=== PATIENT | female | born 1975 | race Caucasian/White ===

== ENCOUNTER 2016-10-18 13:57 | Inpatient (IN) | payer MEDICAID ==
[~2016-10-18] VITALS: Ht 160 cm; Wt 63.5 kg
[~2016-10-18 13:57] MED LIST: BUPR1FIL3 SL; CITA40TA22 PO; CLON0.5T PO; TRAZ-147 PO
[2016-10-18] MEDS ORDERED: CHARCOAL/SORBITOL SOLUTION 50 GM/240 ML BOTTLE PO ONE (14:15)
[2016-10-18] MEDS ORDERED: ONDANSETRON 4 MG/2 ML VIAL IV ONE (14:15)
[2016-10-18] MEDS ORDERED: IV NORMAL SALINE 1000 ML BAG IV ONE ×2 (14:15→16:15)
[2016-10-18] MEDS ORDERED: LEVO125C2 PO (14:29)
[2016-10-18] MEDS ORDERED: MORP15TA PO (14:29)
[2016-10-18] MEDS ORDERED: ONDANSETRON 4 MG/2 ML VIAL ONE (14:32)
[2016-10-18] MEDS ORDERED: CHARCOAL/SORBITOL SOLUTION 50 GM/240 ML BOTTLE ONE (14:33)
--- NOTE | 2016-10-18 14:34 | NUR ---
CHARCOAL ADMINISTERED, ZOFRAN IV ADMIN, 1L 0.9 NS BOLUS INFUSING. MONIOTOR SHOWS NSR, PO2=95% ON ROOMAIR.
[2016-10-18 14:47] LABS: BASOPHILS # (AUTO) 0.1 K/uL (0.0-8.0); BASOPHILS % (AUTO) 0.8 % (0.0-2.0); EOSINOPHILS # (AUTO) 0.1 K/uL (0.0-0.7); EOSINOPHILS % (AUTO) 1.8 % (0.0-7.0); HEMATOCRIT 37.4 % (37-47); HEMOGLOBIN 12.6 G/DL (12.0-16.0); LYMPHOCYTES # (AUTO) 1.3 K/UL (0.8-4.8); LYMPHOCYTES % (AUTO) 18.3 % (20.5-51.5); MEAN CORPUSCULAR HEMOGLOBIN 30.3 UUG (27.0-31.0); MEAN CORPUSCULAR HGB CONC 34 g/dL (32.0-37.0); MEAN CORPUSCULAR VOLUME 90.2 FL (81.0-99.0); MONOCYTES # (AUTO) 0.4 K/UL (0.1-1.30); MONOCYTES % (AUTO) 6.1 % (0.0-11.0); NEUTROPHILS # (AUTO) 5.3 K/UL (1.8-8.9); PLATELET COUNT (AUTO) 182 K/UL (150-450); RED BLOOD CELL COUNT(AUTO) 4.15 MIL/UL (4.2-5.4); WHITE BLOOD COUNT (AUTO) 7.2 K/UL (4.0-11.2)
[2016-10-18 14:52] LABS: CARBON DIOXIDE 26 mmol/L (21-32); CHLORIDE 109 mmol/L (98-107); CREATININE 0.8 mg/dL (0.6-1.3); GLUCOSE 93 mg/dL (74-106); POTASSIUM 3.8 mmol/L (3.5-5.1); UREA NITROGEN, BLOOD 17 mg/dL (7-18)
[2016-10-18 14:56] LABS: ALANINE AMINOTRANSFERASE 10 U/L (14-59); ALKALINE PHOSPHATASE 52 U/L (50-136); ASPARTATE AMINOTRANSFERASE 13 U/L (15-37); BILIRUBIN,DIRECT 0.1 mg/dL (0.0-0.2); BILIRUBIN,TOTAL 0.2 mg/dL (0.2-1.0); TOTAL PROTEIN, SERUM 6.8 g/dL (6.4-8.2)
[2016-10-18 14:59] LABS: ACETAMINOPHEN < 2.0 ug/mL (10-30)
[2016-10-18] MEDS ORDERED: ZIPRASIDONE MESYLATE 20 MG VIAL IM ONE ×4 (15:00→16:37)
[2016-10-18 15:13] LABS: ETHANOL < 3 MG/DL (0-0)
--- NOTE | 2016-10-18 15:57 | NUR ---
PT ASKED FORT URINE AND STATED"NOT YET!" MADE AWARE
--- NOTE | 2016-10-18 17:19 | NUR ---
PT SLEEPING, MONITOR SHOWS NSR, PO2=96% ON ROOMAIR. PT RECEIVING 2ND L OF 0.9NS.
--- NOTE | 2016-10-18 18:48 | NUR ---
URINE SENT TO LAB.
[2016-10-18 18:58] LABS: *BILIRUBIN,URIN NEGATIVE (NEGATIVE); *BLOOD, URINE 3+ (NEGATIVE); *CLARITY,URINE SLIGHTLY CLOUDY (CLEAR); *COLOR,URINE YELLOW (YELLOW); *KETONES,URINE NEGATIVE (NEGATIVE); *PROTEIN,URINE TRACE (NEGATIVE); *UROBILINOGEN,URINE 0.2 E.U./dl (NORMAL); LEUKOCYTE ESTERASE ,URINE NEGATIVE (NEGATIVE); NITRITE, URINE NEGATIVE (NEGATIVE); UGLUCOSE NEGATIVE (NEGATIVE)
[2016-10-18 19:05] LABS: *AMPHETAMINE, URINE NEGATIVE (NEGATIVE); *BARBITURATE, URINE NEGATIVE (NEGATIVE); *CANNABINOID, URINE NEGATIVE (NEGATIVE); *COCCAINE, URINE NEGATIVE (NEGATIVE); *OPIATE, URINE NEGATIVE (NEGATIVE); *PHENCYCLIDINE SCREEN,URINE NEGATIVE (NEGATIVE); BACTERIA,URINE FEW /HPF (NONE SEEN); SQUAMOUS EPITHELIAL CELL,UR FEW /HPF (NONE SEEN); WBC,URINE 0-3 /HPF (0-3)
--- NOTE | 2016-10-18 19:06 | NUR ---
SBAR REPORT TO ZAFAR MAK
--- NOTE | 2016-10-18 19:36 | NUR ---
DR KILGORE INTO RE EVAL PATIENT. PATIENT UNABLE TO ANSWER DATE AND YEAR. PATIENT SLEEPY
--- NOTE | 2016-10-18 19:52 | NUR ---
Call placed to Tita GARRETT from answering services informed staff that all admissions are to be referred to [facility].
--- NOTE | 2016-10-18 20:19 | NUR ---
[facility] Officer Bhaskar called to inform staff that the patient's driver guard's license can be obtained from the [facility] motel front desk clerk.
--- NOTE | 2016-10-18 20:45 | NUR ---
PT RECEIVED FROM ER VIA [facility]. PT AWAKE, A/OX2. ABLE TO MAKE NEEDS KNOWN. ORIENTED TO ROOM. VS STABLE. NO SIGNS OF ACUTE DISTRESS. NO COMPLAINTS OF PAIN AT THIS TIME. REFUSED TO WEAR TELE MONITOR. SAFETY MEASURES IMPLEMENTED. 1:1 SITTER FOR SAFETY AT BEDSIDE. CALL LIGHT WITHIN REACH. WILL CONT TO MONITOR.
--- NOTE | 2016-10-18 20:45 | NUR ---
TRANSFERED TO [address] [place] [address] VIA [facility]
[2016-10-18 21:15] VITALS: BP 94/64
[2016-10-18] MEDS ORDERED: ACETAMINOPHEN 325 MG TABLET PO PRN (23:30)
[2016-10-19] VITALS: BP 100/64
[2016-10-19] MEDS: IV NS 1000 ML 1,000 ML IV PRN ×2 (00:30→12:31)
[2016-10-19] MEDS: ONDANSETRON 4 MG/2 ML VIAL IV PRN ×2 (04:57→12:30)
[2016-10-19 05:00] VITALS: BP 99/72
[2016-10-19] MEDS ORDERED: MORPHINE SULFATE 4 MG/1 ML DISP.SYRIN ONE (05:03)
[2016-10-19] MEDS ORDERED: ONDANSETRON 4 MG/2 ML VIAL ONE (05:04)
[2016-10-19 06:44] LABS: BASOPHILS # (AUTO) 0.1 K/uL (0.0-8.0); BASOPHILS % (AUTO) 1.3 % (0.0-2.0); EOSINOPHILS # (AUTO) 0.2 K/uL (0.0-0.7); EOSINOPHILS % (AUTO) 2.1 % (0.0-7.0); HEMATOCRIT 37.3 % (37-47); HEMOGLOBIN 12.4 G/DL (12.0-16.0); LYMPHOCYTES # (AUTO) 1.3 K/UL (0.8-4.8); LYMPHOCYTES % (AUTO) 15.4 % (20.5-51.5); MEAN CORPUSCULAR HEMOGLOBIN 30.4 UUG (27.0-31.0); MEAN CORPUSCULAR HGB CONC 33 g/dL (32.0-37.0); MEAN CORPUSCULAR VOLUME 91.5 FL (81.0-99.0); MONOCYTES # (AUTO) 0.2 K/UL (0.1-1.30); MONOCYTES % (AUTO) 2.7 % (0.0-11.0); NEUTROPHILS # (AUTO) 6.4 K/UL (1.8-8.9); NEUTROPHILS % (AUTO) 78.5 % (38.5-71.5); PLATELET COUNT (AUTO) 196 K/UL (150-450); RED BLOOD CELL COUNT(AUTO) 4.08 MIL/UL (4.2-5.4); WHITE BLOOD COUNT (AUTO) 8.2 K/UL (4.0-11.2)
--- NOTE | 2016-10-19 07:38 | NUR ---
END OF SHIFT NOTES. PT SLEPT WELL THROUGHOUT SHIFT. 1:1 SITTER AT BEDSIDE FOR SAFETY. NEEDS ATTENDED. V/S STABLE. NO SIGNS OF ACUTE DISTRESS. PT COMPLAINTS OF PAIN. PAIN MEDICATION ADMINISTERED ORDERED. PT VERBALIZED RELIEF OF PAIN. IVF INFUSING. SAFETY MAINTAINED. CALL LIGHT WITHIN REACH.
[2016-10-19] MEDS: PANTOPRAZOLE SODIUM 40 MG TABLET.DR PO SCH (08:29)
[2016-10-19] MEDS ORDERED: LEVOTHYROXINE SODIUM 125 MCG PO SCH (09:00)
[2016-10-19 09:27] VITALS: BP 108/74
[2016-10-19] MEDS: MORPHINE SULFATE 2 MG/1 ML DISP.SYRIN IV PRN ×3 (09:29→18:06)
[2016-10-19] MEDS: NICOTINE 21 MG/24HR PATCH TD SCH (10:15)
[2016-10-19 10:36] LABS: BILIRUBIN,TOTAL 0.2 mg/dL (0.2-1.0); CREATININE 0.6 mg/dL (0.6-1.3); MAGNESIUM 2.1 mg/dL (1.8-2.4); PHOSPHOROUS 2.7 mg/dL (2.5-4.9); POTASSIUM 4.1 mmol/L (3.5-5.1); TOTAL PROTEIN, SERUM 6.1 g/dL (6.4-8.2)
[2016-10-19 12:00] VITALS: BP 108/75
[2016-10-19] MEDS: LORAZEPAM 2 MG/1 ML VIAL IV PRN ×2 (12:22→20:14)
[2016-10-19 15:52] VITALS: BP 104/71
[2016-10-19 19:00] VITALS: BP 105/68
--- NOTE | 2016-10-19 19:45 | NUR ---
PT RECEIVED AFTER PRN ORDER TO SMOKE OUTDOORS. PT WITH 1:1 SITTER AT THIS TIME. ABLE TO MAKE NEEDS KNOWN. PT SHOWS NO SIGNS OF ACUTE DISTRESS. V/S STABLE. NO COMPLAINTS OF PAIN AT THIS TIME. IVF INFUSING. SAFETY MEASURES IMPLEMENTED. 1:1 SITTER REMAINS AT BEDSIDE FOR SAFETY. CALL LIGHT WITHIN REACH. WILL CONTINUE TO MONITOR.
[2016-10-19] MEDS: TRAZODONE 100 MG TABLET PO SCH (20:12)
[2016-10-19] MEDS: CITALOPRAM 20 MG TABLET PO SCH (20:14)
[2016-10-20] MEDS: IV NS 1000 ML 1,000 ML IV PRN (03:47)
[2016-10-20] MEDS: MORPHINE SULFATE 2 MG/1 ML DISP.SYRIN IV PRN ×2 (03:48→07:45)
[2016-10-20 03:56] VITALS: BP 103/65
[2016-10-20] MEDS: LORAZEPAM 2 MG/1 ML VIAL IV PRN (05:20)
[2016-10-20] MEDS: PANTOPRAZOLE SODIUM 40 MG TABLET.DR PO SCH (06:00)
[2016-10-20] MEDS: TIROSINT PO SCH (06:00)
--- NOTE | 2016-10-20 06:59 | NUR ---
END OF SHIFT NOTES. PT SLEPT INTERMITTENTLY THROUGHOUT SHIFT. NEEDS ATTENDED. V/S STABLE. NO ACUTE DISTRESS NOTED. PATIENT COMPLAINTS OF BACK PAIN DURING THE NIGHT. PAIN MEDICATION ADMINISTERED ORDERED. PT FELT ANXIOUS DURING THE NIGHT. ATIVAN GIVEN ORDERED. IVF INFUSING. SAFETY MAINTAINED. 1:1 SITTER AT BEDSIDE FOR SAFETY. CALL LIGHT WITHIN REACH.
--- NOTE | 2016-10-20 07:30 | NUR ---
PT RECEIVED IN BED AWAKE.V/S ARE STABLE.PT IS ALERT ORIENT .COMPLAINING OF BACK PAIN .MORNING ASSESSMENT DONE,SITTER AT BED SIDE
[2016-10-20 07:31] LABS: BASOPHILS % (AUTO) 0.4 % (0.0-2.0); EOSINOPHILS # (AUTO) 0.3 K/uL (0.0-0.7); EOSINOPHILS % (AUTO) 3.1 % (0.0-7.0); HEMATOCRIT 37.8 % (37-47); HEMOGLOBIN 12.7 G/DL (12.0-16.0); LYMPHOCYTES # (AUTO) 1.5 K/UL (0.8-4.8); LYMPHOCYTES % (AUTO) 13.9 % (20.5-51.5); MEAN CORPUSCULAR HEMOGLOBIN 30.7 UUG (27.0-31.0); MEAN CORPUSCULAR HGB CONC 34 g/dL (32.0-37.0); MEAN CORPUSCULAR VOLUME 91.2 FL (81.0-99.0); MONOCYTES # (AUTO) 0.2 K/UL (0.1-1.30); MONOCYTES % (AUTO) 1.8 % (0.0-11.0); NEUTROPHILS # (AUTO) 8.5 K/UL (1.8-8.9); NEUTROPHILS % (AUTO) 80.8 % (38.5-71.5); PLATELET COUNT (AUTO) 192 K/UL (150-450); RED BLOOD CELL COUNT(AUTO) 4.15 MIL/UL (4.2-5.4); WHITE BLOOD COUNT (AUTO) 10.5 K/UL (4.0-11.2)
--- NOTE | 2016-10-20 07:45 | NUR ---
PT C/O PAIN IN THE LOWER BACK PER MD ORDERS MORPHINE 4MG I/V GIVEN BY RN .V/S ARE STABLE.
[2016-10-20 07:46] LABS: BILIRUBIN,TOTAL 0.1 mg/dL (0.2-1.0); CREATININE 0.9 mg/dL (0.6-1.3); PHOSPHOROUS 3.6 mg/dL (2.5-4.9); TOTAL PROTEIN, SERUM 6.2 g/dL (6.4-8.2)
[2016-10-20] MEDS: NICOTINE 21 MG/24HR PATCH TD SCH (07:49)
[2016-10-20 11:44] VITALS: BP 124/79
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
--- NOTE | 2016-10-20 12:36 | NUR ---
PT IS COMBATIVE AND SAYING SHE IS NOT ON HOLD TRYING TO LEAVE THE HOSPITAL ,SECURITY CALLED AND THEY ARE WITH THE PT IN HER ROOM,
[2016-10-20] MEDS: MORPHINE SULFATE IR 30 MG TABLET PO SCH ×3 (12:51→20:55)
--- NOTE | 2016-10-20 13:43 | NUR ---
PT IS SLEEPING IN HER ROOM ,SITTER AT BED SIDE,
--- NOTE | 2016-10-20 15:24 | NUR ---
PT IS COMBATIVE AND READY TO LEAVE THE HOSPITAL ,THREATENING THE STAFF ,CODE KENYATTA CALLED
[2016-10-20 16:07] VITALS: BP 115/79
--- NOTE | 2016-10-20 16:28 | NUR ---
Faxed the patient's information to the following psychiatric facilities: 1. [facility] - - 2. [facility] - - 3. [facility] - - - Lea stated that they do not take Adult Medi-[facility]ishan 4. [facility] - - [phone] 5. [facility] - - 6. [facility] - - 7. [facility] - - 8. [facility] - - - Tracey called and stated they are not in the insurance network for the patient's age 9. [facility] - ext. [phone] - 10. [facility] - stated that they can not admit the patient 11. [facility] - - Lucille stated they do not have a female bed 12. [facility] - - Aldo said they have no beds available 13. [facility] - - Charlene said they are full If one of the facilities call back with an available bed, the patient is on will-call with [facility] [ ; Reservation#[id number]]. They will be needing the Location, Room# and accepting
--- NOTE | 2016-10-20 19:30 | NUR ---
RECEIVED PATIENT LAYING IN BED. PATIENT COMPLAINED OF PAIN IN THE ABDOMEN. WILL REVIEW MEDICATIONS AND WILL ADMINISTER ORDERED. SAFETY INITIATED. CALL LIGHT WITHIN REACH. WILL CONTINUE TO MONITOR.
[2016-10-20 20:00] VITALS: BP 117/80
[2016-10-20] MEDS: TRAZODONE 100 MG TABLET PO SCH (20:54)
[2016-10-20] MEDS: CITALOPRAM 20 MG TABLET PO SCH (20:54)
[2016-10-21] MEDS: LORAZEPAM 1 MG TABLET PO PRN ×2 (04:32→12:56)
[2016-10-21] MEDS: MAGNESIUM HYDROXIDE 30 ML LIQUID UDC PO PRN ×2 (04:37→20:50)
[2016-10-21 05:29] VITALS: BP 109/70
[2016-10-21] MEDS: PANTOPRAZOLE SODIUM 40 MG TABLET.DR PO SCH (06:29)
--- NOTE | 2016-10-21 07:37 | NUR ---
PATIENT SLEPT REALLY WELL T/O THE NIGHT. NO ACUTE DISTRESS NOTED. VITAL SIGNS AFEBRILE. SAFETY AND COMFORT MAINTIANED T/O SHIFT. PATIENT COMPLAINED OF PAIN, MEDS GIVEN, STATED RELIEF. ALL MEDS GIVEN ORDERED. ALL NEEDS MET. CALL LIGHT WITHIN REACH. PATIENT EXPRESS HAVING AN IV INSERTED. ENDORSE TO AM NURSE.
[2016-10-21] MEDS: TIROSINT PO SCH (08:14)
[2016-10-21] MEDS: MORPHINE SULFATE IR 30 MG TABLET PO SCH ×4 (08:15→20:51)
[2016-10-21] MEDS: NICOTINE 21 MG/24HR PATCH TD SCH (09:00)
[2016-10-21 12:13] VITALS: BP 113/77
[2016-10-21] MEDS: METOCLOPRAMIDE HCL 10 MG/2 ML VIAL IV SCH ×2 (13:00→17:49)
[2016-10-21 16:36] VITALS: BP 102/69
[2016-10-21 20:00] VITALS: BP 111/75
[2016-10-21] MEDS: TRAZODONE 100 MG TABLET PO SCH (20:50)
[2016-10-21] MEDS: CITALOPRAM 20 MG TABLET PO SCH (20:50)
[2016-10-22 04:00] VITALS: BP 110/73
[2016-10-22] MEDS ORDERED: MORPHINE SULFATE 2 MG/1 ML DISP.SYRIN IV ONE (04:15)
[2016-10-22] MEDS: MAGNESIUM HYDROXIDE 30 ML LIQUID UDC PO PRN (04:28)
[2016-10-22] MEDS ORDERED: MORPHINE SULFATE 2 MG/1 ML DISP.SYRIN ONE (04:30)
[2016-10-22] MEDS: LORAZEPAM 1 MG TABLET PO PRN ×2 (05:07→22:42)
[2016-10-22] MEDS: METOCLOPRAMIDE HCL 10 MG/2 ML VIAL IV SCH ×4 (05:07→17:45)
[2016-10-22] MEDS: TIROSINT PO SCH (05:08)
[2016-10-22] MEDS: PANTOPRAZOLE SODIUM 40 MG TABLET.DR PO SCH (05:08)
[2016-10-22 08:00] VITALS: BP 118/77
[2016-10-22] MEDS: MORPHINE SULFATE IR 30 MG TABLET PO SCH ×5 (08:13→21:27)
[2016-10-22] MEDS: NICOTINE 21 MG/24HR PATCH TD SCH (08:13)
[2016-10-22 12:00] VITALS: BP 120/78
[2016-10-22] MEDS ORDERED: BISACODYL 5 MG TABLET.DR PO SCH (12:45)
[2016-10-22] MEDS ORDERED: BISACODYL 5 MG TABLET.DR PO PRN (13:00)
[2016-10-22 16:00] VITALS: BP 115/86
[2016-10-22 20:00] VITALS: BP 98/62
--- NOTE | 2016-10-22 20:00 | NUR ---
RECEIVED PATIENT LAYING COMFORTABLY IN BED. NO ACUTE DISTRESS NOTED. COMPLAINED OF PAIN. WILL REVIEW MEDS AND WILL GIVE ORDERED. SAFETY INITIATED. CALL LIGHT WITHIN REACH. WILL CONTINUE TO MONITOR.
[2016-10-22] MEDS: CITALOPRAM 20 MG TABLET PO SCH (21:26)
[2016-10-22] MEDS: TRAZODONE 100 MG TABLET PO SCH (21:27)
[2016-10-23] MEDS: METOCLOPRAMIDE HCL 10 MG/2 ML VIAL IV SCH ×3 (00:56→12:30)
[2016-10-23 05:26] VITALS: BP 102/70
[2016-10-23] MEDS: TIROSINT PO SCH (07:37)
[2016-10-23] MEDS: PANTOPRAZOLE SODIUM 40 MG TABLET.DR PO SCH (07:37)
--- NOTE | 2016-10-23 07:37 | NUR ---
PATIENT SLEPT INTERMITTENTLY T/O SHIFT. SITTER AT BEDSIDE. COMPLAINED OF PAIN, MEDS GIVEN STATED RELIEF. PATIENT EXPRESS CONCERN ABOUT RED BLISTER/RASH IN SKIN FOLDS IN THE KNEES AND AC. ENDORSE INFORMATION TO THE AM NURSE. COMFORT AND SAFETY MEASURES MAINTAINED T/O SHIFT. CALL LIGHT WITIN REACH. NO ACUTE DISTRESS NOTED AT THIS TIME.
[2016-10-23] MEDS: MORPHINE SULFATE IR 30 MG TABLET PO SCH ×2 (08:01→08:46)
[2016-10-23] MEDS: NICOTINE 21 MG/24HR PATCH TD SCH (09:15)
--- NOTE | 2016-10-23 11:28 | NUR ---
PATIENT BEEN DISCHARGE HOME BY DR. SCHREIBER, AND CLEARED BY PSYCH DOCTOR. PATIENT HAVE BEEN IN BED GETTING READY TO GO ASKING FOR PRESCRIPTIONS. WAITING FOR DISCHARGE ORDERS. WILL CONTINUE WITH THE PLAN OF CARE UNTIL PATIENT IS LEAVE. NO SUICIDAD IDEATIONS VERBALIZATION. SAFETY AND COMFORT PROVIDED. WILL CONTINUE MONITORING.
[2016-10-23 12:25] VITALS: BP 105/73
[2016-10-23] MEDS: LORAZEPAM 1 MG TABLET PO PRN (12:31)
--- NOTE | 2016-10-23 14:22 | NUR ---
PATIENT DISCHARGE HOME. DISCHARGE INSTRUCTIONS WERE EXPLAINED, SIGNED BY PATIENT. A COPY WAS PROVIDED, AND PRESCRIPTIONS WERE GIVEN. BELONGINGS WERE TAKEN. IIV AND ID REMOVED. MOTHER CAME TO PICK HER UP. PATIENT WAS TAKEN TO THE LOBBY BY SONNY NURSE CORE MOUNTER IN SAFE CONDITION.
== END 2016-10-23 14:00 | disposition home or self-care (01) | DRG 812 ==
LOC: ER 14:00 → TELE 20:31 → MED 10-19 03:02
PROVIDERS: ADMIT Internal Medicine; ATTEND Internal Medicine
DX: T42.4X2A Poisoning by benzodiazepines, intentional self-harm, initial encounter (principal); G92 Toxic encephalopathy; E44.0 Moderate protein-calorie malnutrition; F33.2 Major depressive disorder, recurrent severe without psychotic features; K31.84 Gastroparesis; E83.51 Hypocalcemia; E88.09 Other disorders of plasma-protein metabolism, not elsewhere classified; E06.3 Autoimmune thyroiditis; F17.210 Nicotine dependence, cigarettes, uncomplicated; Y92.009 Unspecified place in unspecified non-institutional (private) residence as the place of occurrence of the external cause; F41.9 Anxiety disorder, unspecified; K21.9 Gastro-esophageal reflux disease without esophagitis; G89.29 Other chronic pain; Z91.5 Personal history of self-harm; Z87.898 Personal history of other specified conditions; Z68.24 Body mass index [BMI] 24.0-24.9, adult; Z59.9 Problem related to housing and economic circumstances, unspecified
CPT/HCPCS: 36415; 71010; 80307; 83735; 84100; 84443; 84703; 85025; 93005; A4663; G0480; G0480-TC; J2060; J2270; J2405; J2765; J3486; J7030

== ENCOUNTER 2016-11-11 19:56 | Emergency (ER) | payer MEDICAID ==
[~2016-11-11] VITALS: Ht 160 cm; Wt 65.8 kg
[~2016-11-11 19:56] MED LIST changes: -BUPR1FIL3 SL; -CLON0.5T PO; +LEVO125C2 PO; +MORP15TA PO
--- NOTE | 2016-11-11 20:26 | NUR ---
PATIENT WALKED INTO ER C/O ANXIETY THAT STARTED TODAY,ABDOMINAL PAIN WITH NAUSEA X 5 DAYS, PT IS ALERT, ORIENTED X 4, NO RESP DISTRESS NOTED OR REPORTED UPON ASSESSMENT...
[2016-11-11] MEDS ORDERED: CLON0.5T PO (20:37)
[2016-11-11] MEDS: IV NORMAL SALINE 1000 ML BAG IV ONE (22:20)
[2016-11-11] MEDS: METOCLOPRAMIDE HCL 10 MG/2 ML VIAL IV ONE (22:25)
[2016-11-11] MEDS: KETOROLAC TROMETHAMINE 15 MG INJ IV ONE (22:29)
[2016-11-11 22:30] LABS: *BLOOD, URINE 2+ (NEGATIVE); *COLOR,URINE YELLOW (YELLOW); *KETONES,URINE NEGATIVE (NEGATIVE); *PROTEIN,URINE 1+ (NEGATIVE); *UROBILINOGEN,URINE 0.2 E.U./dl (NORMAL); BASOPHILS # (AUTO) 0.1 K/uL (0.0-8.0); BASOPHILS % (AUTO) 0.6 % (0.0-2.0); EOSINOPHILS # (AUTO) 0.5 K/uL (0.0-0.7); EOSINOPHILS % (AUTO) 4.8 % (0.0-7.0); HEMATOCRIT 39.7 % (37-47); HEMOGLOBIN 13.2 G/DL (12.0-16.0); LEUKOCYTE ESTERASE ,URINE NEGATIVE (NEGATIVE); LYMPHOCYTES # (AUTO) 2.5 K/UL (0.8-4.8); LYMPHOCYTES % (AUTO) 24.5 % (20.5-51.5); MEAN CORPUSCULAR HEMOGLOBIN 30.3 UUG (27.0-31.0); MEAN CORPUSCULAR HGB CONC 33 g/dL (32.0-37.0); MONOCYTES # (AUTO) 0.7 K/UL (0.1-1.30); MONOCYTES % (AUTO) 6.4 % (0.0-11.0); NEUTROPHILS # (AUTO) 6.6 K/UL (1.8-8.9); NEUTROPHILS % (AUTO) 63.7 % (38.5-71.5); NITRITE, URINE NEGATIVE (NEGATIVE); PLATELET COUNT (AUTO) 172 K/UL (150-450); RED BLOOD CELL COUNT(AUTO) 4.36 MIL/UL (4.2-5.4); UGLUCOSE NEGATIVE (NEGATIVE); WHITE BLOOD COUNT (AUTO) 10.4 K/UL (4.0-11.2)
[2016-11-11] MEDS ORDERED: METOCLOPRAMIDE HCL 10 MG/2 ML VIAL ONE (22:34)
[2016-11-11] MEDS ORDERED: KETOROLAC TROMETHAMINE 15 MG INJ ONE (22:34)
[2016-11-11 22:37] LABS: CREATININE 0.8 mg/dL (0.6-1.3); POTASSIUM 3.4 mmol/L (3.5-5.1)
[2016-11-11 22:39] LABS: *BILIRUBIN,URIN NEGATIVE (NEGATIVE); *CLARITY,URINE HAZY (CLEAR)
[2016-11-11 22:42] LABS: BACTERIA,URINE FEW /HPF (NONE SEEN); MUCUS,URINE MANY /LPF (0-FEW); RBC,URINE 20-50 /HPF (0-3); SQUAMOUS EPITHELIAL CELL,UR MODERATE /HPF (NONE SEEN); WBC,URINE 0-3 /HPF (0-3)
[2016-11-11 22:43] LABS: BILIRUBIN,DIRECT 0.1 mg/dL (0.0-0.2); BILIRUBIN,TOTAL 0.3 mg/dL (0.2-1.0); TOTAL PROTEIN, SERUM 7.6 g/dL (6.4-8.2)
--- NOTE | 2016-11-11 22:45 | NUR ---
TEMPORARY RECEPTIONIST AT BEDSIDE TO TAKE PT FOR SCAN...
[2016-11-12] MEDS: IV NORMAL SALINE 1000 ML BAG IV ONE (01:20)
[2016-11-12] MEDS: HYDROMORPHONE 1 MG/1 ML DISP.SYRIN IV ONE (01:25)
[2016-11-12] MEDS: ONDANSETRON 4 MG/2 ML VIAL IV ONE (01:25)
[2016-11-12] MEDS ORDERED: CEFTRIAXONE 1 G VIAL ONE (01:26)
[2016-11-12] MEDS ORDERED: HYDROMORPHONE 1 MG/1 ML DISP.SYRIN ONE (01:26)
[2016-11-12] MEDS ORDERED: ONDANSETRON 4 MG/2 ML VIAL ONE (01:26)
[2016-11-12] MEDS ORDERED: AZITHROMYCIN 250 MG TABLET ONE (01:27)
[2016-11-12] MEDS: CEFTRIAXONE 1 G in IV DEXTROSE 5% 50 ML IV ONE (01:30)
[2016-11-12] MEDS: AZITHROMYCIN 250 MG TABLET PO ONE (01:45)
--- NOTE | 2016-11-12 03:01 | NUR ---
Patient discharged to home in stable conditon. Written and verbal after care instructions given. Patient verbalizes understanding of instructions. Pt walked out of ER unassisted with belongings at side...
[2016-11-12 03:43] VITALS: BP 121/79
[2016-11-13] MEDS ORDERED: [UNRECOGNIZED DRUG - REMARK] (11:11)
[2016-11-13] MEDS ORDERED: TRAZ-147 PO (11:11)
[2016-11-13] MEDS ORDERED: CITA40TA22 PO (11:11)
== END 2016-11-12 03:44 | disposition home or self-care (01) ==
LOC: ER 20:06
DX: R10.9 Unspecified abdominal pain (principal); F11.23 Opioid dependence with withdrawal; M54.9 Dorsalgia, unspecified; G89.29 Other chronic pain; K21.9 Gastro-esophageal reflux disease without esophagitis; F32.9 Major depressive disorder, single episode, unspecified; F41.9 Anxiety disorder, unspecified; F10.20 Alcohol dependence, uncomplicated; F17.200 Nicotine dependence, unspecified, uncomplicated; Z88.1 Allergy status to other antibiotic agents
CPT/HCPCS: 36415; 70030-TC; 71010; 83605; 83690; 84703; 85025; 85730; 87040; 93005; A4663; J0696; J1170; J1885; J2405; J2765; J7030; J7060; Q0144

== ENCOUNTER 2016-11-13 11:02 | Emergency (ER) | payer MEDICAID ==
[~2016-11-13] VITALS: Ht 160 cm; Wt 65.8 kg
[~2016-11-13 11:02] MED LIST changes: +CLON0.5T PO
[2016-11-13] MEDS ORDERED: CITA40TA22 PO (11:11)
[2016-11-13] MEDS ORDERED: TRAZ-147 PO (11:11)
[2016-11-13] MEDS ORDERED: [UNRECOGNIZED DRUG - REMARK] (11:11)
[2016-11-13] MEDS: NEOMY/BACITRA/POLYMYXIN B OINT UD PACKET TP ONE (11:52)
--- NOTE | 2016-11-13 11:52 | NUR ---
Patient discharged to home in stable conditon. Written and verbal after care instructions given. Patient verbalizes understanding of instructions. Stressed follow up with pmd/audit practice intern as recommended by .
[2016-11-13] MEDS ORDERED: NEOMY/BACITRA/POLYMYXIN B OINT UD PACKET TP ONE (12:02)
== END 2016-11-13 12:03 | disposition home or self-care (01) ==
LOC: ER 11:02
DX: S90.852A Superficial foreign body, left foot, initial encounter (principal); F10.20 Alcohol dependence, uncomplicated; F17.200 Nicotine dependence, unspecified, uncomplicated; K21.9 Gastro-esophageal reflux disease without esophagitis; F32.9 Major depressive disorder, single episode, unspecified; Z88.1 Allergy status to other antibiotic agents; X58.XXXA Exposure to other specified factors, initial encounter; Y93.89 Activity, other specified; Y92.89 Other specified places as the place of occurrence of the external cause; Y99.8 Other external cause status
CPT/HCPCS: A4663

== ENCOUNTER 2016-11-22 10:16 | Emergency (ER) | payer MEDICAID ==
[~2016-11-22] VITALS: Ht 160 cm; Wt 65.8 kg
[~2016-11-22 10:16] MED LIST changes: +[UNRECOGNIZED DRUG - REMARK]
--- NOTE | 2016-11-22 10:49 | NUR ---
Female railroad yard worker accompanied female patient for (Dr Finch).
--- NOTE | 2016-11-22 10:58 | NUR ---
Patient discharged to home in stable conditon. Written and verbal after care instructions given. Patient verbalizes understanding of instructions. Pt left ER with steady gait.
[2016-11-22 10:59] VITALS: BP 101/82
== END 2016-11-22 11:00 | disposition home or self-care (01) ==
LOC: ER 10:16
DX: Z76.5 Malingerer [conscious simulation] (principal); G89.29 Other chronic pain; M54.9 Dorsalgia, unspecified; E03.9 Hypothyroidism, unspecified; F32.9 Major depressive disorder, single episode, unspecified; K21.9 Gastro-esophageal reflux disease without esophagitis; F41.9 Anxiety disorder, unspecified; F10.10 Alcohol abuse, uncomplicated; F17.200 Nicotine dependence, unspecified, uncomplicated; F19.10 Other psychoactive substance abuse, uncomplicated; Z88.1 Allergy status to other antibiotic agents; Z79.899 Other long term (current) drug therapy
CPT/HCPCS: 99281; A4663

== ENCOUNTER 2017-01-30 11:16 | Emergency (ER) | payer MEDICAID ==
[~2017-01-30] VITALS: Ht 165.1 cm; Wt 74.8 kg
[2017-01-30 11:34] LABS: *BILIRUBIN,URIN NEGATIVE (NEGATIVE); *BLOOD, URINE 2+ (NEGATIVE); *CLARITY,URINE SLIGHTLY CLOUDY (CLEAR); *COLOR,URINE LIGHT YELLOW (YELLOW); *KETONES,URINE NEGATIVE (NEGATIVE); *PROTEIN,URINE NEGATIVE (NEGATIVE); *UROBILINOGEN,URINE 0.2 E.U./dl (NORMAL); LEUKOCYTE ESTERASE ,URINE NEGATIVE (NEGATIVE); NITRITE, URINE NEGATIVE (NEGATIVE); UGLUCOSE NEGATIVE (NEGATIVE)
[2017-01-30 11:45] LABS: *URINE HCG, QUAL NEGATIVE (NEGATIVE)
--- NOTE | 2017-01-30 11:45 | NUR ---
Patient is resting comfortably in bed with eyes closed but wakes up and complains of nausea & pains to abdomen and back, MD notified again
[2017-01-30 11:52] LABS: BACTERIA,URINE NONE SEEN /HPF (NONE SEEN); RBC,URINE TNTC /HPF (0-3); SQUAMOUS EPITHELIAL CELL,UR MANY /HPF (NONE SEEN); WBC,URINE 0-3 /HPF (0-3)
--- NOTE | 2017-01-30 12:24 | NUR ---
Patient ambulates to bathroom with brisk steady gait, for CT scan at this time
--- NOTE | 2017-01-30 13:15 | NUR ---
Patient is back from CT scan & wnats more narcotic medicines, notified
--- NOTE | 2017-01-30 13:38 | NUR ---
No vomiting seen since this patient arrived our ER department, 2nd dose of pain medicine given per MD order
[2017-01-30 13:55] LABS: BASOPHILS # (AUTO) 0.2 K/uL (0.0-8.0); BASOPHILS % (AUTO) 1.7 % (0.0-2.0); EOSINOPHILS # (AUTO) 0.1 K/uL (0.0-0.7); HEMATOCRIT 36.3 % (37-47); HEMOGLOBIN 11.8 G/DL (12.0-16.0); LYMPHOCYTES % (AUTO) 22.5 % (20.5-51.5); MEAN CORPUSCULAR HEMOGLOBIN 30.6 UUG (27.0-31.0); MEAN CORPUSCULAR HGB CONC 32 g/dL (32.0-37.0); MEAN CORPUSCULAR VOLUME 94.3 FL (81.0-99.0); MONOCYTES # (AUTO) 0.6 K/UL (0.1-1.30); MONOCYTES % (AUTO) 6.7 % (0.0-11.0); NEUTROPHILS % (AUTO) 68.1 % (38.5-71.5); PLATELET COUNT (AUTO) 220 K/UL (150-450); RED BLOOD CELL COUNT(AUTO) 3.85 MIL/UL (4.2-5.4); WHITE BLOOD COUNT (AUTO) 8.9 K/UL (4.0-11.2)
[2017-01-30 14:00] LABS: CARBON DIOXIDE 30 mmol/L (21-32); CHLORIDE 106 mmol/L (98-107); CREATININE 0.7 mg/dL (0.6-1.3); GLUCOSE 90 mg/dL (74-106); UREA NITROGEN, BLOOD 16 mg/dL (7-18)
[2017-01-30 14:05] LABS: ALANINE AMINOTRANSFERASE 16 U/L (14-59); ALKALINE PHOSPHATASE 63 U/L (50-136); ASPARTATE AMINOTRANSFERASE 12 U/L (15-37); BILIRUBIN,DIRECT < 0.1 mg/dL (0.0-0.2); BILIRUBIN,TOTAL 0.2 mg/dL (0.2-1.0); LIPASE 68 U/L (73-393); TOTAL PROTEIN, SERUM 6.6 g/dL (6.4-8.2)
--- NOTE | 2017-01-30 14:40 | NUR ---
Patient discharged to home in stable conditon. Written and verbal after care instructions given to patient. Patient verbalizes understanding of instructions. Patient left with brisk steady gait and will be using "uber" to go home.
== END 2017-01-30 14:41 | disposition home or self-care (01) ==
LOC: ER 11:17
DX: G89.29 Other chronic pain (principal); M54.5 Low back pain; K59.00 Constipation, unspecified; F17.200 Nicotine dependence, unspecified, uncomplicated
CPT/HCPCS: 36415; 83690; 84703; 85025; A4663; J1170; J2405; J2550

== ENCOUNTER 2017-02-02 11:44 | Emergency (ER) | payer MEDICAID ==
[~2017-02-02] VITALS: Ht 160 cm; Wt 65.8 kg
--- NOTE | 2017-02-02 12:34 | NUR ---
Pt in ER 2 days ago for pelvic pain, c/o same plus left ABD pain radiating to back, 9/10, and nausea. Also c/o lump or mass in left gluteous muscle with pain. Pt denies CP, SOB, dizziness, no other complaints, no distress noted.
--- NOTE | 2017-02-02 12:54 | NUR ---
Carolina coyle in ED - 02/02/17 at 1401 by LUIS Gave pt RX and d/c instructions, verbalized understanding.
[2017-02-02] MEDS ORDERED: HYDROMORPHONE 1 MG/1 ML DISP.SYRIN IM ONE (13:00)
[2017-02-02] MEDS ORDERED: diphenhydrAMINE 50 MG/1 ML VIAL IM ONE (13:00)
[2017-02-02] MEDS ORDERED: diphenhydrAMINE 50 MG/1 ML VIAL ONE (13:15)
[2017-02-02] MEDS ORDERED: HYDROMORPHONE 2 MG/1 ML DISP.SYRIN ONE (13:16)
[2017-02-02] MEDS ORDERED: ONDANSETRON ODT 4 MG TAB.RAPDIS ONE (13:25)
[2017-02-02] MEDS ORDERED: ONDANSETRON ODT 4 MG TAB.RAPDIS SL ONE (13:30)
--- NOTE | 2017-02-02 13:58 | NUR ---
Gave pt written d/c instructions, pt refused to acknowledge or sign, left ER.
== END 2017-02-02 14:03 | disposition home or self-care (01) ==
LOC: ER 11:51
DX: G89.29 Other chronic pain (principal); M54.9 Dorsalgia, unspecified; R31.9 Hematuria, unspecified; Z76.5 Malingerer [conscious simulation]; F17.200 Nicotine dependence, unspecified, uncomplicated; K21.9 Gastro-esophageal reflux disease without esophagitis; Z88.1 Allergy status to other antibiotic agents; Z88.2 Allergy status to sulfonamides
CPT/HCPCS: A4663; J1170; J1200; Q0162

== ENCOUNTER 2017-02-13 18:42 | Inpatient (IN) | payer MEDICAID ==
[~2017-02-13] VITALS: Ht 162.6 cm; Wt 72.6 kg
--- NOTE | 2017-02-13 18:49 | NUR ---
PT IS IN ROOM #2B. DR COLLINS EVALUATED THE PT.
[2017-02-13] MEDS ORDERED: LIOTHYRONINE 5 MCG (18:54)
[2017-02-13] MEDS ORDERED: OMEPRAZOLE CAP 40MG (18:54)
[2017-02-13] MEDS ORDERED: MELOXICAM 15 MG TABLET (18:54)
[2017-02-13] MEDS ORDERED: LEVOTHYROXINE 137 MCG (18:54)
[2017-02-13] MEDS ORDERED: OXYCOD/APAP TAB 10-325MG (18:54)
[2017-02-13] MEDS ORDERED: CLONAZEPAM TAB 0.5MG (18:54)
[2017-02-13] MEDS ORDERED: HYDROMORPHONE 8 MG (18:54)
[2017-02-13] MEDS ORDERED: HYDROMORPHONE HCL 2 MG TABLET PO ONE (19:15)
[2017-02-13] MEDS ORDERED: ONDANSETRON ODT 4 MG TAB.RAPDIS SL ONE (19:15)
[2017-02-13 19:40] LABS: BASOPHILS # (AUTO) 0.1 K/uL (0.0-8.0); BASOPHILS % (AUTO) 0.9 % (0.0-2.0); EOSINOPHILS # (AUTO) 0.2 K/uL (0.0-0.7); EOSINOPHILS % (AUTO) 1.8 % (0.0-7.0); HEMATOCRIT 38.4 % (37-47); HEMOGLOBIN 12.7 G/DL (12.0-16.0); LYMPHOCYTES # (AUTO) 1.8 K/UL (0.8-4.8); LYMPHOCYTES % (AUTO) 21.5 % (20.5-51.5); MEAN CORPUSCULAR HEMOGLOBIN 30.9 UUG (27.0-31.0); MEAN CORPUSCULAR HGB CONC 33 g/dL (32.0-37.0); MEAN CORPUSCULAR VOLUME 93.4 FL (81.0-99.0); MONOCYTES # (AUTO) 0.7 K/UL (0.1-1.30); MONOCYTES % (AUTO) 8.2 % (0.0-11.0); NEUTROPHILS # (AUTO) 5.8 K/UL (1.8-8.9); NEUTROPHILS % (AUTO) 67.6 % (38.5-71.5); PLATELET COUNT (AUTO) 201 K/UL (150-450); RED BLOOD CELL COUNT(AUTO) 4.11 MIL/UL (4.2-5.4); WHITE BLOOD COUNT (AUTO) 8.6 K/UL (4.0-11.2)
[2017-02-13] MEDS ORDERED: ONDANSETRON ODT 4 MG TAB.RAPDIS ONE (19:42)
[2017-02-13] MEDS ORDERED: HYDROMORPHONE HCL 2 MG TABLET ONE (19:42)
[2017-02-13 19:46] LABS: *URINE HCG, QUAL NEGATIVE (NEGATIVE)
[2017-02-13 19:48] LABS: CREATININE 0.8 mg/dL (0.6-1.3); POTASSIUM 3.8 mmol/L (3.5-5.1)
[2017-02-13 20:00] LABS: BILIRUBIN,DIRECT 0.1 mg/dL (0.0-0.2); BILIRUBIN,TOTAL 0.3 mg/dL (0.2-1.0); TOTAL PROTEIN, SERUM 7.5 g/dL (6.4-8.2)
--- NOTE | 2017-02-13 20:30 | NUR ---
[employer] PRESS FEEDER CALLED PATIENT INSURANCE FOR VERIFICATION FOR ADMISSION.
--- NOTE | 2017-02-13 21:00 | NUR ---
NO RESPONSE FROM PATIENT'S INSURANCE. OK TO CALL [employer] PANEL PER DR. COLLINS.
[2017-02-13] MEDS ORDERED: OXYC-133 PO (21:10)
[2017-02-13] MEDS ORDERED: CLON0.5T4 PO (21:10)
[2017-02-13] MEDS ORDERED: HYDR8TAB18 PO (21:10)
[2017-02-13 21:22] LABS: *BILIRUBIN,URIN NEGATIVE (NEGATIVE); *BLOOD, URINE 3+ (NEGATIVE); *CLARITY,URINE SLIGHTLY CLOUDY (CLEAR); *COLOR,URINE YELLOW (YELLOW); *KETONES,URINE NEGATIVE (NEGATIVE); *PROTEIN,URINE NEGATIVE (NEGATIVE); *UROBILINOGEN,URINE 0.2 E.U./dl (NORMAL); LEUKOCYTE ESTERASE ,URINE NEGATIVE (NEGATIVE); NITRITE, URINE NEGATIVE (NEGATIVE); PH,URINE 8.5 (5.0-8.0); UGLUCOSE NEGATIVE (NEGATIVE)
[2017-02-13 21:24] LABS: BACTERIA,URINE FEW /HPF (NONE SEEN); RBC,URINE 50-80 /HPF (0-3); SQUAMOUS EPITHELIAL CELL,UR MANY /HPF (NONE SEEN); WBC,URINE 0-3 /HPF (0-3)
--- NOTE | 2017-02-13 21:39 | NUR ---
Pt. admitted to [facility] , under care of Dr. CRAFT Belongs List completed.
--- NOTE | 2017-02-13 22:15 | NUR ---
RECEIVED PT FROM ER VIA WHEELCHAIR. PT IS ALERT, AMBULATORY. PT IS ADMITTED TO MED SURG UNDER THE CARE OF DR. CRAFT. DX: PELVIC PAIN. ADMISSION PROCESS AND CARE PLAN INITIATED. BELONGING LIST DONE. WILL CALL MD FOR ORDERS.
--- NOTE | 2017-02-13 22:30 | NUR ---
PATIENT C/O OF PAIN ASKING FOR PAIN MEDICATION. MD NOTIFIED.
[2017-02-13 22:42] VITALS: BP 115/64
[2017-02-13] MEDS ORDERED: OXYCODONE HCL 5 MG TABLET PO PRN (23:30)
[2017-02-13] MEDS ORDERED: CLONAZEPAM 0.5 MG TABLET PO SCH (23:30)
[2017-02-13] MEDS ORDERED: HYDROMORPHONE HCL 2 MG TABLET PO PRN (23:30)
[2017-02-13] MEDS ORDERED: ACETAMINOPHEN 325 MG TABLET PO PRN (23:45)
[2017-02-13] MEDS ORDERED: ONDANSETRON 4 MG/2 ML VIAL IV PRN (23:45)
--- NOTE | 2017-02-14 01:25 | NUR ---
PT UPSET, SCREAMED, YELLING, VERBALLY ABUSIVE, CRYING BECAUSE SHE WANTED PAIN MEDICATIONS IV. SHE STATED PILLS WERE NOT EFFECTIVE. EXPLAINED TO THE PATIENT REGARDING MD'S ORDERS. PATIENT STILL PERSISTED AND WANTS IV MEDICATIONS. OFFERED OTHER INTERVENTIONS BUT PATIENT REFUSED. WITNESSED BY SORTING MACHINE ATTENDANT AND DIRECTOR PRISON.
--- NOTE | 2017-02-14 01:30 | NUR ---
PT HAS OWN PERSONAL MEDICATIONS INSIDE HER BAG. DISCUSSED TO PATIENT REGARDING HOSPITAL POLICY ON BRINGING/USING OWN PERSONAL MEDICATIONS, AND THAT HER MEDICATIONS NEED TO BE TURNED IN TO PHARMACY FOR SAFEKEEPING AND/OR DISPENSING. PATIENT REFUSED TO TURN OVER HER OWN PERSONAL MEDICATIONS TO HER RN, STATED "NO, I WILL KEEP IT WITH ME IN MY BAG".
[2017-02-14] MEDS ORDERED: CLONAZEPAM 0.5 MG TABLET ONE (01:33)
[2017-02-14] MEDS ORDERED: HYDROMORPHONE HCL 2 MG TABLET ONE ×2 (01:34→04:36)
[2017-02-14] MEDS ORDERED: ONDANSETRON 4 MG/2 ML VIAL ONE (01:41)
[2017-02-14 05:07] VITALS: BP 127/67
--- NOTE | 2017-02-14 06:26 | NUR ---
PT SLEPT INTERMITTENTLY, UPSET THAT MEDICATIONS ARE GIVEN IN TABLET FORM, PERSISTENTLY ASKS FOR PAIN MEDICATION VIA IV ROUTE. PT HAS THREATENED TO LEAVE THE HOSPITAL AGAINST MEDICAL ADVICE. DISCUSSED TO THE PATIENT REGARDING RISKS OF LEAVING AMA, PT VERBALIZED UNDERSTANDING. SAFETY MEASURES IN PLACE, CALL LIGHT WITHIN REACH. WILL CONTINUE TO MONITOR.
[2017-02-14 07:16] LABS: BILIRUBIN,TOTAL 0.3 mg/dL (0.2-1.0); CREATININE 0.8 mg/dL (0.6-1.3); MAGNESIUM 1.9 mg/dL (1.8-2.4); PHOSPHOROUS 3.6 mg/dL (2.5-4.9); POTASSIUM 4.1 mmol/L (3.5-5.1); TOTAL PROTEIN, SERUM 7.4 g/dL (6.4-8.2)
[2017-02-14 07:31] LABS: THYROID STIMULATING HORMONE 4.327 mIU/mL (0.358-3.740)
[2017-02-14 07:40] LABS: BASOPHILS % (AUTO) 0.6 % (0.0-2.0); EOSINOPHILS # (AUTO) 0.1 K/uL (0.0-0.7); EOSINOPHILS % (AUTO) 1.9 % (0.0-7.0); HEMATOCRIT 39.3 % (37-47); HEMOGLOBIN 13.2 G/DL (12.0-16.0); LYMPHOCYTES # (AUTO) 1.4 K/UL (0.8-4.8); LYMPHOCYTES % (AUTO) 18.8 % (20.5-51.5); MEAN CORPUSCULAR HEMOGLOBIN 31.2 UUG (27.0-31.0); MEAN CORPUSCULAR HGB CONC 34 g/dL (32.0-37.0); MEAN CORPUSCULAR VOLUME 93.2 FL (81.0-99.0); MONOCYTES # (AUTO) 0.7 K/UL (0.1-1.30); NEUTROPHILS # (AUTO) 5.5 K/UL (1.8-8.9); NEUTROPHILS % (AUTO) 69.7 % (38.5-71.5); PLATELET COUNT (AUTO) 215 K/UL (150-450); RED BLOOD CELL COUNT(AUTO) 4.22 MIL/UL (4.2-5.4); WHITE BLOOD COUNT (AUTO) 7.7 K/UL (4.0-11.2)
--- NOTE | 2017-02-14 08:40 | NUR ---
NICHOLAS NOTE LEFT NICHOLAS STATES SHE WANTS IV PAIN MEDICINE BECAUSE THAT IS WHAT TAKES HER PAIN AWAY. SHE REFUSES THE PAIN MED THAT HAS BEEN ORDERED FOR HER. SHE HAS DILAUDID PO WHAT SHE TAKES AT HOME ORDERED SHE SAYS IT IS NOT WORKING. STATED IF SHE CANNOT GET WHAT HELPS HER THERE IS NO REASON FOR HER TO BE HERE. SHE DRESSED HERSELF TOOK HER BELONGINGS AND WALKED OFF THE UNIT. SAYS SHE IS LEAVING AND REFUSED TO SIGN THE JESSIEA FORM. Addendum: 02/14/17 at 0917 by Cony Jackson RN CAME BACK TO THE FLOOR. SHE IS NOW IN HER ROOM. SHE DOES NOT WANT TO GO [facility]
[2017-02-14] MEDS ORDERED: CITALOPRAM 20 MG TABLET PO SCH (09:00)
--- NOTE | 2017-02-14 10:00 | NUR ---
D/C NOTE PT LEFT AMA. SHE REFUSES THE PAIN MED THAT IS ORDERED. YELLED AT THIS NURSE FOR OFFERING WHAT IS ORDERED BY THE DOC. LEFT THE BUILDING.
[2017-02-14] MEDS ORDERED: TRAZODONE 100 MG TABLET PO SCH (21:00)
== END 2017-02-14 09:40 | disposition left against medical advice (07) | DRG 251 ==
LOC: ER 18:43 → MED 21:43
PROVIDERS: ADMIT Nurse Practitioner Acute Care; ATTEND Nurse Practitioner Acute Care
DX: R10.2 Pelvic and perineal pain (principal); K31.84 Gastroparesis; F11.23 Opioid dependence with withdrawal; M54.42 Lumbago with sciatica, left side; G89.4 Chronic pain syndrome; E06.3 Autoimmune thyroiditis; F19.10 Other psychoactive substance abuse, uncomplicated; K12.0 Recurrent oral aphthae; Z91.89 Other specified personal risk factors, not elsewhere classified; Z76.5 Malingerer [conscious simulation]; F60.89 Other specific personality disorders; E66.9 Obesity, unspecified; Z68.27 Body mass index [BMI] 27.0-27.9, adult; F41.9 Anxiety disorder, unspecified; K21.9 Gastro-esophageal reflux disease without esophagitis; F32.9 Major depressive disorder, single episode, unspecified; F17.210 Nicotine dependence, cigarettes, uncomplicated; Z79.899 Other long term (current) drug therapy
CPT/HCPCS: 36415; 76856; 83690; 83735; 84100; 84443; 84703; 85025; 85730; A4663; J2405; Q0162

== ENCOUNTER 2017-03-08 09:47 | Emergency (ER) | payer MEDICAID ==
[~2017-03-08] VITALS: Ht 160 cm; Wt 68.0 kg
[~2017-03-08 09:47] MED LIST changes: +HYDR8TAB18 PO; -MORP15TA PO; +OXYC-133 PO; -[UNRECOGNIZED DRUG - REMARK]
[2017-03-08 10:05] LABS: *BILIRUBIN,URIN NEGATIVE (NEGATIVE); *BLOOD, URINE 2+ (NEGATIVE); *COLOR,URINE YELLOW (YELLOW); *KETONES,URINE NEGATIVE (NEGATIVE); *PROTEIN,URINE NEGATIVE (NEGATIVE); *URINE HCG, QUAL NEGATIVE (NEGATIVE); *UROBILINOGEN,URINE 0.2 E.U./dl (NORMAL); LEUKOCYTE ESTERASE ,URINE NEGATIVE (NEGATIVE); NITRITE, URINE NEGATIVE (NEGATIVE); UGLUCOSE NEGATIVE (NEGATIVE)
[2017-03-08 10:08] LABS: *CLARITY,URINE SLIGHTLY HAZY (CLEAR)
[2017-03-08 10:16] LABS: BACTERIA,URINE NONE SEEN /HPF (NONE SEEN); SQUAMOUS EPITHELIAL CELL,UR MODERATE /HPF (NONE SEEN); WBC,URINE 0-3 /HPF (0-3)
[2017-03-08 10:17] LABS: YEAST,URINE FEW /HPF (NONE SEEN)
[2017-03-08] MEDS ORDERED: KETOROLAC TROMETHAMINE 30 MG INJ IM ONE (10:30)
[2017-03-08] MEDS ORDERED: ONDANSETRON ODT 4 MG TAB.RAPDIS SL ONE (10:30)
[2017-03-08] MEDS ORDERED: KETOROLAC TROMETHAMINE 30 MG INJ ONE (10:37)
[2017-03-08 10:38] LABS: BASOPHILS # (AUTO) 0.1 K/uL (0.0-8.0); BASOPHILS % (AUTO) 0.9 % (0.0-2.0); EOSINOPHILS # (AUTO) 0.3 K/uL (0.0-0.7); EOSINOPHILS % (AUTO) 5.6 % (0.0-7.0); HEMATOCRIT 39.3 % (37-47); HEMOGLOBIN 13.1 G/DL (12.0-16.0); LYMPHOCYTES # (AUTO) 1.4 K/UL (0.8-4.8); LYMPHOCYTES % (AUTO) 23.3 % (20.5-51.5); MEAN CORPUSCULAR HEMOGLOBIN 30.6 UUG (27.0-31.0); MEAN CORPUSCULAR HGB CONC 33 g/dL (32.0-37.0); MEAN CORPUSCULAR VOLUME 92.2 FL (81.0-99.0); MONOCYTES # (AUTO) 0.4 K/UL (0.1-1.30); NEUTROPHILS # (AUTO) 3.7 K/UL (1.8-8.9); NEUTROPHILS % (AUTO) 64.2 % (38.5-71.5); PLATELET COUNT (AUTO) 177 K/UL (150-450); RED BLOOD CELL COUNT(AUTO) 4.27 MIL/UL (4.2-5.4); WHITE BLOOD COUNT (AUTO) 5.9 K/UL (4.0-11.2)
[2017-03-08 10:53] LABS: CREATININE 0.7 mg/dL (0.6-1.3); POTASSIUM 4.2 mmol/L (3.5-5.1)
[2017-03-08 10:59] LABS: BILIRUBIN,DIRECT 0.1 mg/dL (0.0-0.2); BILIRUBIN,TOTAL 0.3 mg/dL (0.2-1.0); TOTAL PROTEIN, SERUM 6.9 g/dL (6.4-8.2)
[2017-03-08] MEDS ORDERED: ONDANSETRON ODT 4 MG TAB.RAPDIS ONE (11:15)
[2017-03-08] MEDS ORDERED: HYDROMORPHONE HCL 2 MG TABLET PO ONE (12:15)
--- NOTE | 2017-03-08 12:50 | NUR ---
DR KISER AT [facility] SPOKE WITH PATIENT WILL BE DC HOME FOLLOW UP WITH PMD
--- NOTE | 2017-03-08 12:53 | NUR ---
Patient discharged to home in stable conditon. Written and verbal after care instructions given. Patient verbalizes understanding of instructions.
[2017-03-08 12:54] VITALS: BP 115/75
[2017-03-08] MEDS ORDERED: HYDROMORPHONE HCL 2 MG TABLET ONE (12:58)
== END 2017-03-08 12:56 | disposition home or self-care (01) ==
LOC: ER 09:47
DX: R10.2 Pelvic and perineal pain (principal); R30.0 Dysuria; Z76.5 Malingerer [conscious simulation]; K21.9 Gastro-esophageal reflux disease without esophagitis; G89.29 Other chronic pain; E06.3 Autoimmune thyroiditis; Z88.1 Allergy status to other antibiotic agents; Z88.2 Allergy status to sulfonamides
CPT/HCPCS: 74176; 76856; 80048; 80076; 81001; 83690; 84703 ×2; 85025; 96372; 99285; A4663; J1885; Q0162; 36415

== ENCOUNTER 2017-05-25 17:43 | Emergency (ER) | payer MEDICAID ==
--- NOTE | 2017-05-25 17:55 | NUR ---
CALLED PT TO [facility] , NO ANSWER.
--- NOTE | 2017-05-25 18:25 | NUR ---
SECOND CALL TO [facility]. NO ANSWER.
== END 2017-05-25 19:20 | disposition left against medical advice (07) ==
LOC: ER 17:43
DX: Z53.21 Procedure and treatment not carried out due to patient leaving prior to being seen by health care provider (principal)

== ENCOUNTER 2017-05-25 19:33 | Emergency (ER) | payer MEDICAID ==
[~2017-05-25] VITALS: Ht 160 cm; Wt 63.0 kg
--- NOTE | 2017-05-25 19:50 | NUR ---
PATIENT BIB [facility] FROM HOME WITH C/O BILATERAL FEET AND ANKLE PAIN. NO IV NOTED
--- NOTE | 2017-05-25 21:12 | NUR ---
Patient eloped from facility. ER physician notified.
== END 2017-05-25 21:13 | disposition left against medical advice (07) ==
LOC: ER 19:34
DX: F41.9 Anxiety disorder, unspecified (principal); G89.29 Other chronic pain; F17.200 Nicotine dependence, unspecified, uncomplicated
CPT/HCPCS: A4663

== ENCOUNTER 2017-10-12 16:03 | Emergency (ER) | payer MEDICAID ==
[~2017-10-12] VITALS: Ht 160 cm; Wt 68.0 kg
[2017-10-12] MEDS ORDERED: HALOPERIDOL LACTATE 5 MG/1 ML VIAL ONE (16:20)
[2017-10-12] MEDS ORDERED: HALOPERIDOL LACTATE 5 MG/1 ML VIAL IM ONE (16:30)
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
[2017-10-12 16:43] LABS: BASOPHILS % (AUTO) 0.5 % (0.0-2.0); EOSINOPHILS # (AUTO) 0.1 K/uL (0.0-0.7); EOSINOPHILS % (AUTO) 0.6 % (0.0-7.0); HEMATOCRIT 38.3 % (31.2-41.9); HEMOGLOBIN 13.1 g/dL (10.9-14.3); LYMPHOCYTES # (AUTO) 1.8 K/uL (20.0-40.0); LYMPHOCYTES % (AUTO) 20.8 % (20.5-51.5); MEAN CORPUSCULAR HEMOGLOBIN 30.9 uug (24.7-32.8); MEAN CORPUSCULAR HGB CONC 34 g/dL (32.3-35.6); MEAN CORPUSCULAR VOLUME 90.1 fL (75.5-95.3); MONOCYTES # (AUTO) 0.5 K/uL (2.0-10.0); MONOCYTES % (AUTO) 5.9 % (0.0-11.0); NEUTROPHILS # (AUTO) 6.2 K/uL (1.8-8.9); NEUTROPHILS % (AUTO) 72.2 % (38.5-71.5); PLATELET COUNT (AUTO) 189 K/uL (179-408); RED BLOOD CELL COUNT(AUTO) 4.25 MIL/uL (3.63-4.92); WHITE BLOOD COUNT (AUTO) 8.6 K/uL (3.8-11.8)
[2017-10-12 16:49] LABS: CARBON DIOXIDE 31 mmol/L (21-32); CHLORIDE 103 mmol/L (98-107); CREATININE 0.7 mg/dL (0.6-1.3); GLUCOSE 85 mg/dL (74-106); POTASSIUM 3.7 mmol/L (3.5-5.1); UREA NITROGEN, BLOOD 13 mg/dL (7-18)
[2017-10-12 16:55] LABS: ACETAMINOPHEN 3.6 ug/mL (10-30); ALANINE AMINOTRANSFERASE 21 U/L (14-59); ALKALINE PHOSPHATASE 66 U/L (50-136); ASPARTATE AMINOTRANSFERASE 17 U/L (15-37); BILIRUBIN,DIRECT 0.1 mg/dL (0.0-0.2); BILIRUBIN,TOTAL 0.3 mg/dL (0.2-1.0); TOTAL PROTEIN, SERUM 6.9 g/dL (6.4-8.2)
[2017-10-12 16:58] LABS: ETHANOL < 3 MG/DL (0-0)
== END 2017-10-12 16:41 | disposition left against medical advice (07) ==
LOC: ER 16:06
DX: G89.29 Other chronic pain (principal); M79.604 Pain in right leg; Z88.2 Allergy status to sulfonamides; Z88.8 Allergy status to other drugs, medicaments and biological substances; Z79.891 Long term (current) use of opiate analgesic; Z79.899 Other long term (current) drug therapy
CPT/HCPCS: 36415; 80048; 80076; 85025; 96372; 99284; A4663; G0480 ×2; G0481; J1630

== ENCOUNTER 2017-10-31 05:41 | Emergency (ER) | payer MEDICAID ==
[~2017-10-31] VITALS: Ht 160 cm; Wt 63.5 kg
--- NOTE | 2017-10-31 06:02 | NUR ---
Patient bib rescue, patient fell, hurt right knee and back. Dr. Ma at bedside for MSE.
[2017-10-31] MEDS ORDERED: ONDANSETRON 4 MG/2 ML VIAL ONE (06:12)
[2017-10-31] MEDS ORDERED: MORPHINE SULFATE 4 MG/1 ML DISP.SYRIN ONE (06:12)
[2017-10-31] MEDS ORDERED: MORPHINE SULFATE 4 MG/1 ML DISP.SYRIN IM ONE (06:15)
[2017-10-31] MEDS ORDERED: ONDANSETRON 4 MG/2 ML VIAL IM ONE (06:15)
[2017-10-31] MEDS ORDERED: MORP30TA59 PO (06:40)
[2017-10-31] MEDS ORDERED: LINA145C PO (06:40)
[2017-10-31] MEDS ORDERED: LEVO137C2 PO (06:40)
[2017-10-31] MEDS ORDERED: CLON0.5T PO (06:40)
[2017-10-31] MEDS ORDERED: OMEP20TA20 PO (06:40)
--- NOTE | 2017-10-31 06:50 | NUR ---
Pt states the morphine didn't work pain still 12/03, and feeling nauseous. Pt requesting Dilaudid. notified.
--- NOTE | 2017-10-31 07:00 | NUR ---
SBAR report to Rachel MAK.
--- NOTE | 2017-10-31 07:07 | NUR ---
RECEIVED REPORT. WAITING FOR PATIENT TO COME BACK FROM XRAY.
[2017-10-31] MEDS ORDERED: KETOROLAC TROMETHAMINE 30 MG INJ IM ONE (07:45)
[2017-10-31] MEDS ORDERED: OXYCODONE/APAP 5-325 MG TABLET PO ONE (07:45)
[2017-10-31] MEDS ORDERED: OXYCODONE/APAP 5-325 MG TABLET ONE (07:53)
[2017-10-31] MEDS ORDERED: KETOROLAC TROMETHAMINE 60 MG INJ IM ONE (07:53)
--- NOTE | 2017-10-31 08:04 | NUR ---
GIVEN DISCHARGE INSTRUCTION. INSTRUCTED NOT TO DRIVE OR OPERATE HEAVY MACHINARY. PATIENT SIGNED DISCHARGE INSTRUCTIONS.
== END 2017-10-31 08:00 | disposition home or self-care (01) ==
LOC: ER 05:42
DX: G89.29 Other chronic pain (principal); M54.9 Dorsalgia, unspecified; Z88.2 Allergy status to sulfonamides; Z88.8 Allergy status to other drugs, medicaments and biological substances; Z79.891 Long term (current) use of opiate analgesic; Z79.899 Other long term (current) drug therapy
CPT/HCPCS: 36415; 72072; 72100; 84443; 84703; 96372 ×3; 99285; A4663; J1885; J2270; J2405

== ENCOUNTER 2017-11-07 16:01 | Emergency (ER) | payer MEDICAID ==
[~2017-11-07] VITALS: Ht 160 cm; Wt 63.5 kg
[~2017-11-07 16:01] MED LIST changes: -HYDR8TAB18 PO; -LEVO125C2 PO; +LEVO137C2 PO; +LINA145C PO; +MORP30TA59 PO; +OMEP20TA20 PO; -OXYC-133 PO; -TRAZ-147 PO; +TRAZ-214 PO
[2017-11-07] MEDS ORDERED: ONDANSETRON ODT 4 MG TAB.RAPDIS ONE (18:48)
[2017-11-07] MEDS ORDERED: HYDROMORPHONE HCL 2 MG TABLET ONE (18:48)
[2017-11-07] MEDS: HYDROMORPHONE HCL 2 MG TABLET PO ONE (18:50)
[2017-11-07] MEDS: ONDANSETRON ODT 4 MG TAB.RAPDIS SL ONE (18:50)
--- NOTE | 2017-11-07 19:08 | NUR ---
LAB AT PT BEDSIDE FOR BLOOD DRAW.
--- NOTE | 2017-11-07 19:13 | NUR ---
REPORT TAKEN FROM AUBREE ABRAMS. ASSUMING PT CARE AT THIS TIME.
[2017-11-07 19:26] LABS: BASOPHILS % (AUTO) 0.6 % (0.0-2.0); EOSINOPHILS # (AUTO) 0.2 K/uL (0.0-0.7); EOSINOPHILS % (AUTO) 2.9 % (0.0-7.0); HEMATOCRIT 37.3 % (31.2-41.9); HEMOGLOBIN 12.4 g/dL (10.9-14.3); LYMPHOCYTES % (AUTO) 28.5 % (20.5-51.5); MEAN CORPUSCULAR HEMOGLOBIN 30.3 uug (24.7-32.8); MEAN CORPUSCULAR HGB CONC 33 g/dL (32.3-35.6); MEAN CORPUSCULAR VOLUME 91.3 fL (75.5-95.3); MONOCYTES # (AUTO) 0.6 K/uL (2.0-10.0); MONOCYTES % (AUTO) 8.3 % (0.0-11.0); NEUTROPHILS # (AUTO) 4.1 K/uL (1.8-8.9); NEUTROPHILS % (AUTO) 59.7 % (38.5-71.5); PLATELET COUNT (AUTO) 185 K/uL (179-408); RED BLOOD CELL COUNT(AUTO) 4.08 MIL/uL (3.63-4.92); WHITE BLOOD COUNT (AUTO) 6.9 K/uL (3.8-11.8)
[2017-11-07 19:31] LABS: CREATININE 0.7 mg/dL (0.6-1.3); POTASSIUM 3.7 mmol/L (3.5-5.1)
[2017-11-07 19:36] LABS: BILIRUBIN,TOTAL 0.2 mg/dL (0.2-1.0); TOTAL PROTEIN, SERUM 6.5 g/dL (6.4-8.2)
[2017-11-07 19:47] LABS: THYROID STIMULATING HORMONE 0.256 mIU/mL (0.358-3.740)
--- NOTE | 2017-11-07 20:17 | NUR ---
Patient discharged to home in stable conditon. Written and verbal after care instructions given. Patient verbalizes understanding of instructions. Pt ambulated from ER w/ steady gait. Denies pain, denies SOB, MORALES, N/V, or dizziness. No distress noted. Pt took all personal belongings.
[2017-11-07 20:19] VITALS: BP 114/71
== END 2017-11-07 20:20 | disposition home or self-care (01) ==
LOC: ER 16:02
DX: G89.29 Other chronic pain (principal); M25.571 Pain in right ankle and joints of right foot; F17.200 Nicotine dependence, unspecified, uncomplicated; Z76.5 Malingerer [conscious simulation]; Z88.2 Allergy status to sulfonamides; Z88.8 Allergy status to other drugs, medicaments and biological substances; Z79.891 Long term (current) use of opiate analgesic; Z79.899 Other long term (current) drug therapy
CPT/HCPCS: 36415; 84443; 84481; 85025; A4663; Q0162

== ENCOUNTER 2017-11-14 13:33 | Emergency (ER) | payer MEDICAID ==
[~2017-11-14] VITALS: Ht 157.5 cm; Wt 63.5 kg
[2017-11-14] MEDS ORDERED: ONDANSETRON 4 MG/2 ML VIAL ONE ×3 (14:24→15:15)
[2017-11-14] MEDS ORDERED: ONDANSETRON 4 MG/2 ML VIAL IM ONE (14:30)
[2017-11-14] MEDS ORDERED: ONDANSETRON ODT 4 MG TAB.RAPDIS SL ONE (14:30)
[2017-11-14 14:40] LABS: *BILIRUBIN,URIN NEGATIVE (NEGATIVE); *BLOOD, URINE 3+ (NEGATIVE); *CLARITY,URINE SLIGHTLY CLOUDY (CLEAR); *COLOR,URINE YELLOW (YELLOW); *KETONES,URINE NEGATIVE (NEGATIVE); *PROTEIN,URINE TRACE (NEGATIVE); *UROBILINOGEN,URINE 0.2 E.U./dl (NORMAL); LEUKOCYTE ESTERASE ,URINE NEGATIVE (NEGATIVE); NITRITE, URINE NEGATIVE (NEGATIVE); UGLUCOSE NEGATIVE (NEGATIVE)
[2017-11-14 14:41] LABS: *URINE HCG, QUAL NEGATIVE (NEGATIVE)
[2017-11-14 14:46] LABS: BACTERIA,URINE NONE SEEN /HPF (NONE SEEN); RBC,URINE 50-80 /HPF (0-3); SQUAMOUS EPITHELIAL CELL,UR FEW /HPF (NONE SEEN); WBC,URINE 0-3 /HPF (0-3)
[2017-11-14] MEDS ORDERED: OXYCODONE/APAP 5-325 MG TABLET PO ONE (15:00)
[2017-11-14] MEDS ORDERED: OXYCODONE/APAP 5-325 MG TABLET ONE (15:06)
[2017-11-14] MEDS ORDERED: diphenhydrAMINE 50 MG/1 ML VIAL IM ONE (15:15)
[2017-11-14] MEDS ORDERED: diphenhydrAMINE 50 MG/1 ML VIAL ONE (15:15)
[2017-11-14] MEDS ORDERED: METOCLOPRAMIDE HCL 10 MG/2 ML VIAL IM ONE (15:15)
[2017-11-14] MEDS ORDERED: METOCLOPRAMIDE HCL 10 MG/2 ML VIAL ONE (15:23)
== END 2017-11-14 16:11 | disposition home or self-care (01) ==
LOC: ER 13:35
DX: G89.29 Other chronic pain (principal); M54.9 Dorsalgia, unspecified; Z88.2 Allergy status to sulfonamides; Z88.8 Allergy status to other drugs, medicaments and biological substances; Z79.891 Long term (current) use of opiate analgesic; Z79.899 Other long term (current) drug therapy
CPT/HCPCS: 81001; 84703; 96372 ×3; 99284; A4663; J1200; J2405 ×2; J2765

== ENCOUNTER 2018-06-20 12:48 | Emergency (ER) | payer MEDICAID, OTHER ==
[~2018-06-20] VITALS: Ht 170.2 cm; Wt 65.8 kg
--- NOTE | 2018-06-20 13:11 | NUR ---
Patient discharged to home in stable conditon. Written and verbal after care instructions given. Patient verbalizes understanding of instructions.pt left in custody of lapd.
== END 2018-06-20 13:13 ==
LOC: ER 12:48
DX: S61.512A Laceration without foreign body of left wrist, initial encounter (principal); F17.200 Nicotine dependence, unspecified, uncomplicated; Z88.2 Allergy status to sulfonamides; Z88.8 Allergy status to other drugs, medicaments and biological substances; Z79.899 Other long term (current) drug therapy; X58.XXXA Exposure to other specified factors, initial encounter; Y93.89 Activity, other specified; Y92.89 Other specified places as the place of occurrence of the external cause; Y99.8 Other external cause status
CPT/HCPCS: A4663

== ENCOUNTER 2018-12-22 12:42 | Emergency (ER) | payer MEDICARE, MEDICAID ==
[~2018-12-22] VITALS: Ht 160 cm; Wt 65.8 kg
[2018-12-22] MEDS ORDERED: IV NORMAL SALINE 1000 ML BAG IV ONE (13:15)
[2018-12-22] MEDS ORDERED: ONDANSETRON 4 MG/2 ML VIAL IV ONE (13:15)
[2018-12-22] MEDS ORDERED: KETOROLAC TROMETHAMINE 30 MG INJ IVP ONE (13:15)
[2018-12-22 13:32] LABS: BASOPHILS % (AUTO) 0.3 % (0.0-2.0); EOSINOPHILS # (AUTO) 0.2 K/uL (0.0-0.7); HEMOGLOBIN 12.4 g/dL (10.9-14.3); LYMPHOCYTES # (AUTO) 1.6 K/uL (20.0-40.0); LYMPHOCYTES % (AUTO) 23.9 % (20.5-51.5); MEAN CORPUSCULAR HEMOGLOBIN 30.4 uug (24.7-32.8); MEAN CORPUSCULAR HGB CONC 34 g/dL (32.3-35.6); MEAN CORPUSCULAR VOLUME 90.7 fL (75.5-95.3); MONOCYTES # (AUTO) 0.8 K/uL (2.0-10.0); MONOCYTES % (AUTO) 11.6 % (0.0-11.0); NEUTROPHILS % (AUTO) 61.2 % (38.5-71.5); PLATELET COUNT (AUTO) 197 K/uL (179-408); RED BLOOD CELL COUNT(AUTO) 4.08 MIL/uL (3.63-4.92); WHITE BLOOD COUNT (AUTO) 6.6 K/uL (3.8-11.8)
[2018-12-22] MEDS ORDERED: SUBOXONE PO (13:32)
[2018-12-22] MEDS ORDERED: ONDANSETRON 4 MG/2 ML VIAL ONE (13:32)
[2018-12-22] MEDS ORDERED: KETOROLAC TROMETHAMINE 30 MG INJ ONE (13:32)
[2018-12-22] MEDS ORDERED: ARIP10TA9 PO (13:32)
[2018-12-22 13:47] LABS: CREATININE 0.8 mg/dL (0.6-1.3); POTASSIUM 3.7 mmol/L (3.5-5.1)
[2018-12-22 13:53] LABS: BILIRUBIN,DIRECT 0.1 mg/dL (0.0-0.2); BILIRUBIN,TOTAL 0.3 mg/dL (0.2-1.0); TOTAL PROTEIN, SERUM 6.9 g/dL (6.4-8.2)
[2018-12-22] MEDS ORDERED: HYDR25CA PO (13:58)
[2018-12-22] MEDS ORDERED: diphenhydrAMINE 50 MG/1 ML VIAL IV ONE (14:00)
[2018-12-22] MEDS ORDERED: diphenhydrAMINE 50 MG/1 ML VIAL ONE (14:04)
--- NOTE | 2018-12-22 15:14 | NUR ---
Carolina coyle in ED - 12/22/18 at 1515 by TAMARA Patient discharged to home in stable conditon. Written and verbal after care instructions given. Patient verbalizes understanding of instructions.
--- NOTE | 2018-12-22 15:15 | NUR ---
IV removed. Catheter intact and site benign. Pressure and 4x4 gauze applied to site. No bleeding noted.
--- NOTE | 2018-12-22 15:15 | NUR ---
Patient discharged to home in stable conditon. Written and verbal after care instructions given. Patient verbalizes understanding of instructions.
[2018-12-22 15:16] VITALS: BP 108/67
== END 2018-12-22 15:17 | disposition home or self-care (01) ==
LOC: ER 12:42
DX: A08.4 Viral intestinal infection, unspecified (principal); E86.0 Dehydration; G89.29 Other chronic pain; M54.9 Dorsalgia, unspecified; F41.9 Anxiety disorder, unspecified; F32.9 Major depressive disorder, single episode, unspecified; F17.200 Nicotine dependence, unspecified, uncomplicated; Z88.2 Allergy status to sulfonamides; Z88.8 Allergy status to other drugs, medicaments and biological substances; Z79.899 Other long term (current) drug therapy
CPT/HCPCS: 36415; 80048; 80076; 84702; 85025; 96361; 96374; 96375; 99283; J1200; J1885; J2405; A4663; J7030

== ENCOUNTER 2020-07-30 18:03 | Emergency (ER) | payer MEDICARE, OTHER ==
[~2020-07-30] VITALS: Ht 160 cm; Wt 65.8 kg
[~2020-07-30 18:03] MED LIST changes: +ARIP10TA9 PO; -CLON0.5T PO; +HYDR25CA PO; -LINA145C PO; -MORP30TA59 PO; +SUBOXONE PO; -TRAZ-214 PO; +TRAZ-257 PO
[2020-07-30] MEDS ORDERED: ONDANSETRON ODT 4 MG TAB.RAPDIS SL ONE (18:45)
[2020-07-30] MEDS ORDERED: MORPHINE SULFATE 4 MG/1 ML DISP.SYRIN IM ONE (18:45)
[2020-07-30] MEDS ORDERED: MORPHINE SULFATE 4 MG/1 ML DISP.SYRIN ONE (19:06)
[2020-07-30] MEDS ORDERED: ONDANSETRON ODT 4 MG TAB.RAPDIS ONE (19:06)
[2020-07-30 19:34] LABS: *URINE HCG, QUAL NEGATIVE (NEGATIVE)
[2020-07-30] MEDS ORDERED: IBUP-1955 PO (19:42)
--- NOTE | 2020-07-30 20:18 | NUR ---
Patient discharged to home in stable condition. Written and verbal after care instructions given. Patient verbalizes understanding of instructions. Stressed follow up or return to ER for worsening s/s.pt walks in steady gait. pt not driving.
== END 2020-07-30 20:10 | disposition home or self-care (01) ==
LOC: ER 18:06
DX: S93.401A Sprain of unspecified ligament of right ankle, initial encounter (principal); W01.0XXA Fall on same level from slipping, tripping and stumbling without subsequent striking against object, initial encounter; Y93.01 Activity, walking, marching and hiking; Y92.89 Other specified places as the place of occurrence of the external cause; Y99.8 Other external cause status; R50.9 Fever, unspecified; Z20.822 Contact with and (suspected) exposure to COVID-19; E06.3 Autoimmune thyroiditis; M79.7 Fibromyalgia; G89.29 Other chronic pain; M54.9 Dorsalgia, unspecified; Z88.2 Allergy status to sulfonamides; Z88.8 Allergy status to other drugs, medicaments and biological substances
CPT/HCPCS: 73610; 84703; 87426; 96372; 99284; J2270; A4663; Q0162

== ENCOUNTER 2020-12-13 21:53 | Emergency (ER) | payer MEDICARE, OTHER ==
[~2020-12-13] VITALS: Ht 160 cm; Wt 65.8 kg
[~2020-12-13 21:53] MED LIST changes: +IBUP-1955 PO
--- NOTE | 2020-12-13 22:50 | NUR ---
Pt provided urine sample, sent to lab.
--- NOTE | 2020-12-13 23:00 | NUR ---
Dr. Smalls at bedside for MSE.
[2020-12-13] MEDS ORDERED: LORAZEPAM 2 MG/1 ML VIAL IV ONE (23:30)
[2020-12-13] MEDS ORDERED: PROCHLORPERAZINE EDISYLATE 10 MG/2 ML VIAL IV ONE (23:30)
[2020-12-13] MEDS ORDERED: IV NORMAL SALINE 1000 ML BAG IV ONE (23:30)
[2020-12-13] MEDS ORDERED: KETOROLAC TROMETHAMINE 15 MG INJ IVP ONE (23:30)
[2020-12-13] MEDS ORDERED: diphenhydrAMINE 50 MG/1 ML VIAL IV ONE (23:30)
[2020-12-13] MEDS ORDERED: LORAZEPAM 2 MG/1 ML VIAL ONE (23:56)
[2020-12-13] MEDS ORDERED: diphenhydrAMINE 50 MG/1 ML VIAL ONE (23:57)
[2020-12-13] MEDS ORDERED: PROCHLORPERAZINE EDISYLATE 10 MG/2 ML VIAL ONE (23:57)
[2020-12-13] MEDS ORDERED: KETOROLAC TROMETHAMINE 30 MG INJ ONE (23:57)
[2020-12-14 00:07] LABS: HEMATOCRIT 35.4 % (31.2-41.9); MEAN CORPUSCULAR HEMOGLOBIN 29.9 uug (24.7-32.8); MEAN CORPUSCULAR VOLUME 88.8 fL (75.5-95.3); PLATELET COUNT (AUTO) 203 K/uL (179-408)
[2020-12-14 00:19] LABS: *BILIRUBIN,URIN NEGATIVE (NEGATIVE); *BLOOD, URINE 1+ (NEGATIVE); *CLARITY,URINE CLOUDY (CLEAR); *COLOR,URINE YELLOW (YELLOW); *KETONES,URINE NEGATIVE (NEGATIVE); *UROBILINOGEN,URINE 0.2 E.U./dl (NORMAL); LEUKOCYTE ESTERASE ,URINE NEGATIVE (NEGATIVE); NITRITE, URINE NEGATIVE (NEGATIVE); UGLUCOSE NEGATIVE (NEGATIVE)
[2020-12-14 00:29] LABS: *URINE HCG, QUAL NEGATIVE (NEGATIVE); BACTERIA,URINE NONE SEEN /HPF (NONE SEEN); SQUAMOUS EPITHELIAL CELL,UR FEW /HPF (NONE SEEN); URINE AMORPHOUS PHOSPHATES MANY /HPF; WBC,URINE NONE SEEN /HPF (0-3)
[2020-12-14 00:37] LABS: ALANINE AMINOTRANSFERASE 14 U/L (14-59); ALKALINE PHOSPHATASE 71 U/L (50-136); ASPARTATE AMINOTRANSFERASE 12 U/L (15-37); BILIRUBIN,DIRECT < 0.1 mg/dL (0.0-0.2); BILIRUBIN,TOTAL 0.2 mg/dL (0.2-1.0); CARBON DIOXIDE 27 mmol/L (21-32); CHLORIDE 104 mmol/L (98-107); CREATININE 0.8 mg/dL (0.6-1.3); GLUCOSE 86 mg/dL (74-106); LIPASE 55 U/L (73-393); POTASSIUM 3.5 mmol/L (3.5-5.1); TOTAL PROTEIN, SERUM 6.9 g/dL (6.4-8.2); UREA NITROGEN, BLOOD 21 mg/dL (7-18)
[2020-12-14] MEDS ORDERED: IV NORMAL SALINE 250 ML IV ONE (00:55)
[2020-12-14] MEDS ORDERED: SWABABLE VALVE TRANSFER SET EA MC ONE (00:55)
[2020-12-14] MEDS ORDERED: IOHEXOL 300MG/ML 100 ML INFUS..BTL ONE (00:55)
--- NOTE | 2020-12-14 01:00 | NUR ---
Pt out of ER for CT.
--- NOTE | 2020-12-14 01:19 | NUR ---
Pt back to ER from CT.
[2020-12-14] MEDS ORDERED: DIPH25TA45 PO (01:48)
[2020-12-14] MEDS ORDERED: METO-295 PO (01:48)
--- NOTE | 2020-12-14 02:24 | NUR ---
Patient discharged to home in stable condition. Written and verbal after care instructions given. Patient verbalizes understanding of instructions. Stressed follow up or return to ER for worsening s/s. Patient out of ER with steady gait, no acute signs of distress, VSS, all belongings taken, IV site discontinued, provided with copies of lab, and CT results.
[2020-12-14 02:25] VITALS: BP 115/82
== END 2020-12-14 02:27 | disposition home or self-care (01) ==
LOC: ER 21:55
DX: G89.29 Other chronic pain (principal); R10.9 Unspecified abdominal pain; R11.2 Nausea with vomiting, unspecified; Z76.5 Malingerer [conscious simulation]; M54.9 Dorsalgia, unspecified; E06.3 Autoimmune thyroiditis; F17.210 Nicotine dependence, cigarettes, uncomplicated; Z79.899 Other long term (current) drug therapy; Z80.9 Family history of malignant neoplasm, unspecified; Z88.2 Allergy status to sulfonamides; M79.7 Fibromyalgia; F32.9 Major depressive disorder, single episode, unspecified; F41.9 Anxiety disorder, unspecified
CPT/HCPCS: 36415; 74177; 80048; 80076; 81001; 83690; 84703; 85025; 85730; 96361 ×2; 96374; 96375; 99285; 99406; J0780; J1200; J1885; J2060; Q9967; J7030; J7050

== ENCOUNTER 2020-12-24 19:03 | Emergency (ER) | payer MEDICARE, OTHER ==
[~2020-12-24] VITALS: Ht 160 cm; Wt 65.8 kg
[~2020-12-24 19:03] MED LIST changes: +DIPH25TA45 PO; +METO-295 PO
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
--- NOTE | 2020-12-24 19:45 | NUR ---
PtAzra fitch, stated she was not staying because she wanted narcotic pain medication. Attempted to educate pt, offer medications (motrin and subutex) that the ordered, but pt. refused, and exited hospital without signing any paperwork.
[2020-12-24] MEDS ORDERED: IBUPROFEN 600 MG TABLET PO ONE (20:00)
[2020-12-24] MEDS ORDERED: BUPRENORPHINE HCL 2 MG TAB.SUBL SL ONE (20:00)
== END 2020-12-24 19:45 | disposition left against medical advice (07) ==
LOC: ER 19:03
DX: M54.5 Low back pain (principal); Z76.5 Malingerer [conscious simulation]; F11.20 Opioid dependence, uncomplicated; F13.20 Sedative, hypnotic or anxiolytic dependence, uncomplicated; M79.7 Fibromyalgia; Z88.2 Allergy status to sulfonamides; Z88.8 Allergy status to other drugs, medicaments and biological substances; G89.29 Other chronic pain; F17.210 Nicotine dependence, cigarettes, uncomplicated; Z53.29 Procedure and treatment not carried out because of patient's decision for other reasons
CPT/HCPCS: A4663

== ENCOUNTER 2021-08-19 00:45 | Emergency (ER) | payer MEDICARE, OTHER ==
[~2021-08-19] VITALS: Ht 160 cm; Wt 56.4 kg
--- NOTE | 2021-08-19 00:56 | NUR ---
Patient BIB RA c/o left leg pain, nausea, and headache
[2021-08-19] MEDS ORDERED: ONDANSETRON ODT 4 MG TAB.RAPDIS SL ONE (01:15)
[2021-08-19] MEDS ORDERED: CLONAZEPAM 0.5 MG TABLET PO ONE (01:15)
[2021-08-19] MEDS ORDERED: KETOROLAC TROMETHAMINE 60 MG INJ IM ONE ×2 (01:15→01:17)
[2021-08-19] MEDS ORDERED: ONDANSETRON ODT 4 MG TAB.RAPDIS ONE (01:16)
[2021-08-19] MEDS ORDERED: CLONAZEPAM 0.5 MG TABLET ONE (01:17)
[2021-08-19 01:32] LABS: HEMATOCRIT 34.6 % (31.2-41.9); MEAN CORPUSCULAR HEMOGLOBIN 29.8 uug (24.7-32.8); MEAN CORPUSCULAR VOLUME 88.5 fL (75.5-95.3); PLATELET COUNT (AUTO) 240 K/uL (179-408)
[2021-08-19 01:36] LABS: CARBON DIOXIDE 34 mmol/L (21-32); CHLORIDE 102 mmol/L (98-107); CREATININE 0.8 mg/dL (0.6-1.3); GLUCOSE 94 mg/dL (74-106); POTASSIUM 3.4 mmol/L (3.5-5.1); UREA NITROGEN, BLOOD 14 mg/dL (7-18)
[2021-08-19 01:41] LABS: ALANINE AMINOTRANSFERASE 21 U/L (14-59); ALKALINE PHOSPHATASE 78 U/L (50-136); ASPARTATE AMINOTRANSFERASE 12 U/L (15-37); BILIRUBIN,DIRECT < 0.1 mg/dL (0.0-0.2); BILIRUBIN,TOTAL 0.1 mg/dL (0.2-1.0); LIPASE 35 U/L (73-393); TOTAL PROTEIN, SERUM 6.3 g/dL (6.4-8.2)
--- NOTE | 2021-08-19 01:41 | NUR ---
patient is restless. walking in and out of the room
[2021-08-19] MEDS ORDERED: HALOPERIDOL LACTATE 5 MG/1 ML VIAL ONE (02:29)
[2021-08-19] MEDS ORDERED: diphenhydrAMINE 50 MG/1 ML VIAL ONE (02:29)
[2021-08-19] MEDS ORDERED: diphenhydrAMINE 50 MG/1 ML VIAL IM ONE (02:30)
[2021-08-19] MEDS ORDERED: HALOPERIDOL LACTATE 5 MG/1 ML VIAL IM ONE (02:30)
[2021-08-19 03:02] LABS: ACETAMINOPHEN < 2.0 ug/mL (10-30)
[2021-08-19 03:17] LABS: ETHANOL < 3 MG/DL (0-0)
[2021-08-19 04:07] LABS: *BILIRUBIN,URIN NEGATIVE (NEGATIVE); *CLARITY,URINE CLOUDY (CLEAR); *COLOR,URINE YELLOW (YELLOW); *KETONES,URINE TRACE (NEGATIVE); *UROBILINOGEN,URINE 0.2 E.U./dl (NORMAL); LEUKOCYTE ESTERASE ,URINE NEGATIVE (NEGATIVE); NITRITE, URINE NEGATIVE (NEGATIVE); PH,URINE 7.5 (5.0-8.0); UGLUCOSE NEGATIVE (NEGATIVE)
[2021-08-19 04:09] LABS: *BLOOD, URINE TRACE (NEGATIVE)
[2021-08-19 04:18] LABS: BACTERIA,URINE NONE SEEN /HPF (NONE SEEN); SQUAMOUS EPITHELIAL CELL,UR FEW /HPF (NONE SEEN); URINE AMORPHOUS PHOSPHATES MANY /HPF; WBC,URINE 0-3 /HPF (0-3)
[2021-08-19 04:21] LABS: *AMPHETAMINE, URINE NEGATIVE (NEGATIVE); *CANNABINOID, URINE NEGATIVE (NEGATIVE); *COCCAINE, URINE NEGATIVE (NEGATIVE); *OPIATE, URINE NEGATIVE (NEGATIVE); *PHENCYCLIDINE SCREEN,URINE NEGATIVE (NEGATIVE)
--- NOTE | 2021-08-19 05:50 | NUR ---
Called Art terrazzo polisher
--- NOTE | 2021-08-19 06:56 | NUR ---
Patient discharged to home in stable condition. Written and verbal after care instructions given. Patient verbalizes understanding of instructions. Stressed follow up or return to ER for worsening s/s. Patient is A/Ox4, no CP, no SOB, no distress noted. Patient is able to walk with steady gait.
[2021-08-19 06:57] VITALS: BP 111/75
== END 2021-08-19 06:55 | disposition home or self-care (01) ==
LOC: ER 00:48
DX: M79.605 Pain in left leg (principal); R46.2 Strange and inexplicable behavior; F17.210 Nicotine dependence, cigarettes, uncomplicated; F19.10 Other psychoactive substance abuse, uncomplicated; E87.6 Hypokalemia; F41.9 Anxiety disorder, unspecified
CPT/HCPCS: 36415; 80048; 80076; 80299; 80307; 80320; 81001; 82550; 83690; 84702; 85025; 93005; 93971; 96372 ×2; 99285; 99406; J1200; J1630; J1885; A4663; C1758; G0480; Q0162

== ENCOUNTER 2021-08-23 18:44 | Emergency (ER) | payer MEDICARE, OTHER ==
[~2021-08-23] VITALS: Ht 160 cm; Wt 49.9 kg
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
[2021-08-23] MEDS ORDERED: KETOROLAC TROMETHAMINE 15 MG INJ IM ONE (19:15)
[2021-08-23] MEDS ORDERED: LORAZEPAM 0.5 MG TABLET PO ONE (19:15)
[2021-08-23] MEDS ORDERED: LORAZEPAM 0.5 MG TABLET ONE (19:21)
[2021-08-23] MEDS ORDERED: KETOROLAC TROMETHAMINE 15 MG INJ ONE (19:21)
--- NOTE | 2021-08-23 19:28 | NUR ---
ativan and toradol was given. pt asking for morphine, Dr. Hernandez aware.
[2021-08-23] MEDS ORDERED: CEPH500T PO (19:44)
[2021-08-23] MEDS ORDERED: CLIN300C12 PO (19:44)
[2021-08-23] MEDS ORDERED: CEphaleXIN 500 MG CAPSULE PO ONE (19:45)
[2021-08-23] MEDS ORDERED: CLINDAMYCIN HCL 150 MG CAPSULE PO ONE (19:45)
[2021-08-23] MEDS ORDERED: CLINDAMYCIN HCL 150 MG CAPSULE ONE (19:46)
[2021-08-23] MEDS ORDERED: CEphaleXIN 500 MG CAPSULE ONE (19:46)
--- NOTE | 2021-08-23 19:49 | NUR ---
Dr. Hernandez at bedside speaking with the pt.
--- NOTE | 2021-08-23 20:08 | NUR ---
Patient discharged to home in stable condition. Written and verbal after care instructions given. Patient verbalizes understanding of instructions. Stressed follow up or return to ER for worsening s/s.
[2021-08-23 20:09] VITALS: BP 109/76
== END 2021-08-23 20:09 | disposition home or self-care (01) ==
LOC: ER 18:46
DX: L03.113 Cellulitis of right upper limb (principal); M79.641 Pain in right hand; Y09 Assault by unspecified means; S69.91XA Unspecified injury of right wrist, hand and finger(s), initial encounter; Y92.89 Other specified places as the place of occurrence of the external cause; S90.821A Blister (nonthermal), right foot, initial encounter; X58.XXXA Exposure to other specified factors, initial encounter; F17.210 Nicotine dependence, cigarettes, uncomplicated; Z88.2 Allergy status to sulfonamides
CPT/HCPCS: 73110; 96372; 99284; J1885; A4663